=== PATIENT | male | born 1960 | race Caucasian/White ===

== ENCOUNTER 2023-07-20 02:26 | Day surgery (SDC) | payer OTHER, SELFPAY ==
[2023-07-08 14:53] VITALS: BMI 24.5
[2023-07-20 10:15] VITALS: BP 127/64; PULSE 93; RESP 18; TEMP 36.4; O2SAT 98; BMI 24.0
[2023-07-20] MEDS: LACTATED RINGERS 1,000 ML 150 ML IV CONT (10:37)
--- NOTE | 2023-07-20 10:55 | PM.HPGS ---
History of Present Illness History of Present Illness Consent: Risks, benefits, and alternatives have been discussed and questions answered. Patient agrees to proceed with procedure. Chief complaint: neoplasm screening Narrative: Omega Calabrese Sr. is a 62 year old male here for colon screening Review of Systems Constitutional: Constitutional: Denies headache(s) and Denies weakness Eyes: Eyes: Denies blurry vision ENT: Reports Normal hearing present, Denies headache(s) and Denies neck pain Cardiovascular: Cardiovascular: Denies chest pain and Denies dyspnea Respiratory: Respiratory: Denies dyspnea Gastrointestinal: Gastrointestinal: Reports no additional gastrointestinal complaints Genitourinary: Genitourinary: Denies dysuria Musculoskeletal: Musculoskeletal: Denies neck pain Integumentary/Breasts: Skin/Breast: Denies dry skin Neurologic: Reports Normal hearing present, Denies headache(s) and Denies weakness Psychiatric: Psychiatric: Denies anxiety Endocrine: Endocrine: Denies change in body appearance Hematologic/Lymphatic: Hematologic/Lymphatic: Denies easy bleeding Allergic/Immunologic: Allergic/Immunologic: Denies urticaria PMFSH Past Medical History Medical History (Updated 07/20/23 @ 10:56 by Augustine Whitney MD) Colon cancer screening Social History Social History Smoking packs per day: 2 Smoking cigarettes per day: 40.0 Years smoked: 50 Smoking pack-years: 100.00 Smoking status: Current every day smoker Tobacco type: cigarettes Additional smoking assessment comments: CUT BACK ON SMOKING MARCH 2023 Alcohol intake: current Substance use: current Substance use type: marijuana Other substance usage details: EVENING Living arrangements: with family Spiritual care concerns: No Meds Home Medications and Allergies Home Medications Medication Instructions Recorded Confirmed Type albuterol sulfate 90 mcg/actuation 2 puff inhalation Q4H PRN 07/08/23 07/20/23 History aerosol inhaler Shortness Of Breath amlodipine 5 mg tablet 5 mg PO DAILY 07/08/23 07/20/23 History atorvastatin 40 mg tablet 40 mg PO DAILY 07/08/23 07/20/23 History carvedilol 6.25 mg tablet 6.25 mg PO BID 07/08/23 07/20/23 History clopidogrel 75 mg tablet 75 mg PO DAILY 07/08/23 07/20/23 History cyanocobalamin (vitamin B-12) 1,000 mcg IM MONTHLY 07/08/23 07/20/23 History 1,000 mcg/mL injection solution famotidine 20 mg tablet 20 mg PO DAILY 07/08/23 07/20/23 History fluticasone propionate 50 2 spray intranasal BID PRN 07/08/23 07/20/23 History mcg/actuation nasal Congestion spray,suspension lisinopril 5 mg tablet 5 mg PO DAILY 07/08/23 07/20/23 History nitroglycerin 0.4 mg sublingual 0.4 mg sublingual PRN PRN Chest 07/08/23 07/20/23 History tablet Pain Allergies Allergy/AdvReac Type Severity Reaction Status Date / Time No Known Allergies Allergy Unknown Verified 07/20/23 10:21 Vital Signs Vital Signs - 24 hr 07/20/23 10:15 Temperature 97.6 F Pulse Rate 93 Respiratory Rate 18 Blood Pressure 127/64 Pulse Oximetry 98 Oxygen Delivery Room Air Exam Const: General: comfortable and no acute distress HENMT: Face/Nose/Sinus: Normal nares present Eyes: General: appearance normal, both eyes and all related structures Neck: Neck: no JVD Resp: Auscultation: clear to auscultation bilaterally Cardio: Rate: regular rate Rhythm: regular rhythm GI: Inspection: non-distended GI Palp: Yes Soft to palpation Skin: General skin exam: normal color Neuro: General: gait normal Speech: normal speech Extrem: General: normal to inspection Psych: Mental Status: mental status grossly normal Assessment and Plan Assessment and plan (1) Colon cancer screening: Code(s): Z12.11 - Encounter for screening for malignant neoplasm of colon Status: Acute Assessment and Plan: colonoscopy
--- NOTE | 2023-07-20 10:58 | P.PNAN_ITS ---
Anes - Initial Pre Proc Eval Procedure: Operation Date: 07/20/23 11:30 Proposed Procedures p Screening Colonoscopy - Augustine Whitney MD Date/Time: 07/20/23 10:58 Surgeon: Augustine Whitney MD Pre Op Diagnosis: neoplasm screening Patient Data Age: 62 Gender: M Height: 1.83 m Weight: 80.2 kg Last Vital Signs Temp 97.6 F 07/20/23 10:15 Pulse 93 07/20/23 10:15 Resp 18 07/20/23 10:15 BP 127/64 07/20/23 10:15 Pulse Ox 98 07/20/23 10:15 O2 Del Method Room Air 07/20/23 10:15 Allergies Allergy/AdvReac Type Severity Reaction Status Date / Time No Known Allergies Allergy Unknown Verified 07/20/23 10:21 Home Medications Medication Instructions Recorded Confirmed Type albuterol sulfate 90 mcg/actuation 2 puff inhalation Q4H PRN 07/08/23 07/20/23 History aerosol inhaler Shortness Of Breath amlodipine 5 mg tablet 5 mg PO DAILY 07/08/23 07/20/23 History atorvastatin 40 mg tablet 40 mg PO DAILY 07/08/23 07/20/23 History carvedilol 6.25 mg tablet 6.25 mg PO BID 07/08/23 07/20/23 History clopidogrel 75 mg tablet 75 mg PO DAILY 07/08/23 07/20/23 History cyanocobalamin (vitamin B-12) 1,000 mcg IM MONTHLY 07/08/23 07/20/23 History 1,000 mcg/mL injection solution famotidine 20 mg tablet 20 mg PO DAILY 07/08/23 07/20/23 History fluticasone propionate 50 2 spray intranasal BID PRN 07/08/23 07/20/23 History mcg/actuation nasal Congestion spray,suspension lisinopril 5 mg tablet 5 mg PO DAILY 07/08/23 07/20/23 History nitroglycerin 0.4 mg sublingual 0.4 mg sublingual PRN PRN Chest 07/08/23 07/20/23 History tablet Pain Patient hx anesthesia problems: none Family hx anesthesia problems: none Results Review: All pre-operative results and documents have been reviewed as part of the pre- operative evaluation. [facility] Past Medical History Medical History (Updated 07/20/23 @ 10:56 by Aguustine Whitney MD) Colon cancer screening Social History Social History Smoking packs per day: 2 Smoking cigarettes per day: 40.0 Years smoked: 50 Smoking pack-years: 100.00 Smoking status: Current every day smoker Tobacco type: cigarettes Additional smoking assessment comments: CUT BACK ON SMOKING MARCH 2023 Alcohol intake: current Substance use: current Substance use type: marijuana Other substance usage details: EVENING Living arrangements: with family Spiritual care concerns: No Anes - Eval Final PreProcedure Day of Procedure 07/20/23 10:58 Patient weight: normal Heart: regular rate and rhythm Lungs: clear to auscultation Airway: Mallampati scale class II Neurological: alert and oriented Last oral intake: >/= 8 hours ASA classification: III Emergent: no Anesthetic plan: proceed Anesthesia type and monitoring: general GIVS and standard monitoring Results Review: All pre-operative results and documents have been reviewed as part of the pre- operative evaluation. Informed Consent: The patient's anesthetic plan and its attendant risks and benefits were discussed with the patient/family/POA. Questions were solicited and answers provided to the satisfaction of the patient/family/POA.
[2023-07-20 11:26] VITALS: BP 98/65; PULSE 61; RESP 20; O2SAT 100
[2023-07-20 11:36] VITALS: BP 103/63; PULSE 53; RESP 17; O2SAT 100
[2023-07-20 11:46] VITALS: BP 113/74; PULSE 54; RESP 19; O2SAT 100
== END 2023-07-20 12:00 | disposition home or self-care (01) ==
PROVIDERS: PCP Physician Assistant; Visit Provider Internal Medicine Gastroenterology
PROC: 0DJD8ZZ Inspection of Lower Intestinal Tract, Via Natural or Artificial Opening Endoscopic (ICD-10-PCS; CPT 45378; principal; 2023-07-20 11:30)
DX: Z12.11 Encounter for screening for malignant neoplasm of colon (principal); D12.2 Benign neoplasm of ascending colon; D12.4 Benign neoplasm of descending colon; D12.5 Benign neoplasm of sigmoid colon; K63.5 Polyp of colon; K57.30 Diverticulosis of large intestine without perforation or abscess without bleeding; K64.8 Other hemorrhoids; Z79.02 Long term (current) use of antithrombotics/antiplatelets; Z79.51 Long term (current) use of inhaled steroids; F17.210 Nicotine dependence, cigarettes, uncomplicated; F12.90 Cannabis use, unspecified, uncomplicated
CPT/HCPCS: 45385; 88305; J2704; J7120

== ENCOUNTER 2025-10-29 01:21 | Day surgery (SDC) | payer MEDICARE, MEDICAID, SELFPAY ==
--- NOTE | 2025-08-30 11:13 | PC.NURSE ---
Addendum entered by Fariha Antony RN 08/30/25 11:33: Pt has 13 heart stents. Original Note: Pt called and had ran out of his medications so has not been taking them for 2-3 months. Has a new PCP who has reordered all him meds and he is now getting back on his meds and working on a cardiology appt for clearance. Rescheduled to 10/29/25, he will call me with rn training and appt. date.
[2025-10-23 15:48] VITALS: BMI 24.3
--- NOTE | 2025-10-23 16:10 | PC.NURSE ---
Spoke with patient regarding medication plavix. Patient verbalizes understanding that the last dose is to be taken on 10/24/2025 and the Endoscopist will instruct them when to restart after the procedure.
--- OUTSIDE RECORDS SUMMARY | 2025-10-29 01:25 | XMS_ITS | Data Portability ---
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 01/12/2023 23:10:47 Social History Question Answer Notes LastModified by Organizat ion Details LastModified Time Tobacco Smoking Status Current Every Day Smoker Not Available [facility] 01/12/2023 23:10:03 Do You Have An Advance Directive? No Information not available 07/30/2025 Do You Wear A Helmet When Biking? Yes [id number] Information not available 01/12/2023 What Is Your Level Of Caffeine Consumption? Heavy Information not available 07/30/2025 In The 14 Days Before Symptom Onset, Have You Had Close Contact With A Laboratory-korini ed COVID-19 While That Case Was Ill? No Information not available 07/30/2025 In The 14 Days Before Symptom Onset, Have You Had Close Contact With A Person Who Is Under Investigation For COVID-19 While That Person Was Ill? No Information not available 07/30/2025 What Type Of Diet Are You Following? REGULAR [id number] Information not available 01/12/2023 Which Illicit Or Recreational Drugs Have You Used? Marijuana Information not available 07/30/2025 What Is The Highest Grade Or Level Of School You Have Completed Or The Highest Degree You Have Received? [id number] Information not available 01/12/2023 Do You Use Insect Repellent Routinely? No Information not available 07/30/2025 Where Do You Live? SingleLevelHouse Information not available 07/30/2025 Do You Have A Medical Power Of Ground School Instructor? No Information not available 07/30/2025 What Was The Date Of Your Most Recent Tobacco Screening? 07/30/2025 Information not available 07/30/2025 How Many Children Do You Have? 3 Information not available 07/30/2025 What Is Your Current Pack Years? 30ormorepackyears MIGRATION.52730 [id number] Information not available 01/12/2023 Do You Have Any Pets? No Information not available 07/30/2025 What Is Your Relationship Status? Information not available 07/30/2025 Do You Use Your Seat Belt Or Car Seat Routinely? Yes [id number] Information not available 01/12/2023 Do You Have Smoke And Carbon Monoxide Detectors In Your Home? Yes Information not available 07/30/2025 At What Age Did You Start Smoking Tobacco? 15 [id number] Information not available 01/12/2023 Are There Any Smokers In Your House? No Information not available 07/30/2025 How Much Tobacco Do You Smoke? 2 PPW Information not available 07/30/2025 Do You Participate In Social Media? No Information not available 07/30/2025 Do You Use Sunscreen Routinely? No Information not available 07/30/2025 Have You Recently Traveled Abroad? No Information not available 07/30/2025 Have You Used IV Drugs? No Information not available 07/30/2025 Are You Currently In School? No MIGRATION.[id number] Information not available 01/12/2023 Do You Have Any Dietary Restrictions? No MIGRATION.81647 32389 Information not available 01/12/2023 Sex: Unknown Functional Status Question Answer Note LastModified by [employer] Details LastModified Time Do you use any illicit or recreational drugs? Yes Information not available 07/30/2025 Do you or have you ever used any other forms of tobacco or nicotine? No Information not available 07/30/2025 What is your level of alcohol consumption? Occasional [id number] Information not available 01/12/2023 Are you currently employed? No retired Information not available 07/30/2025 What is your exercise level? None [id number] 026 Information not available 01/12/2023 Mental Status Question Answer Note LastModified by [employer] Details LastModified Time Do you feel stressed (tense, restless, nervous, or anxious, or unable to sleep at night)? UE6789-5 [id number] Information not available 01/12/2023 Family History Relationship Description Onset Age of this Age Resolved Age Notes LastModified by Organization Details LastModified Time Mother Hypertensive disorder [id number] Not available 01/12/2023 23:10:23 Mother Severe chronic obstructive pulmonary disease [id number].986 [id number] Not available 01/12/2023 23:10:23 Mother Myocardial infarction [id number].440 [id number] Not available 01/12/2023 23:10:23 Father Malignant neoplasm of bone MIGRATION.820 [id number] Not available 01/12/2023 23:10:23 Father Malignant neoplasm of lung MIGRATION.193 [id number] Not available 01/12/2023 23:10:23 Father Severe chronic obstructive pulmonary disease [id number].613 [id number] Not available 01/12/2023 23:10:23 Father Myocardial infarction [id number].070 [id number] Not available 01/12/2023 23:10:23 Sister Severe chronic obstructive pulmonary disease [id number].476 [id number] Not available 01/12/2023 23:10:23 Brother Myocardial infarction MIGRATION.947 [id number] Not available 01/12/2023 23:10:23 Medical History Condition Response BLINDNESS N RHEUMATIC FEVER N KIDNEY STONES N BLADDER PROBLEMS N MRSA N OTHER # 1 N POLIO N LUNG DISEASE/DISORDER N HISTORY OF DRUG ABUSE N COPD N RADIATION / CHEMOTHERAPY N Other # 2 N BLOOD DISEASES N SURGERY N EAR OR HEARING PROBLEMS N MUMPS N SHINGLES N FEMALE PROBLEMS / INFECTIONS N DEPRESSION (INCLUDING POST ) N BOWEL PROBLEMS N STROKE/TIA N THYROID DISEASE N ULCERS N BENIGN PROSTATIC HYPERPLASIA N MEASLES N CERVICALGIA N HYPOTENSION N TB SKIN TEST N MYOCARDIAL INFARCTION N OBESITY N PARAPELGIA N GERD/NAUSEA N ANEURYSM N URINARY/BLADDER/KIDNEY PROBLEMS N CORONARY ARTERY DISEASE (CAD) N MENIERE'S DISEASE N ADDICTION CONCERNS N ENDOMETRIOSIS N USE OF BLOOD THINNERS N SKIN PROBLEMS N EMPHYSEMA N GASTROINTESTINAL DISORDER N MUSCLE,JOINT OR BONE PROBLEMS N GASTROINTESTINAL BLEEDING N BLOOD CLOTS N ASTHMA N CATARACTS N ERECTILE DYSFUNCTION N GI PROBLEMS N CHF N Low Testosterone N NEUROPATHY N INFERTILITY N AIDS/HIV N FRACTURES N CHEMOTHERAPY / RADIATION N VISION/EYE PROBLEMS N LIVER DISEASE N MALE HYPOGONADISM N HYPERTENSION N TOURETTE'S N ANXIETY DISORDER N BLOOD TRANSFUSION N ANEMIA/BLOOD DISORDER N CHRONIC EAR INFECTIONS N BRONCHITIS N TUBERCULOSIS N GLAUCOMA N FOOT PROBLEM N DIVERTICULITIS N SLEEP APNEA N CHICKENPOX N ALLERGIES/HAYFEVER N INFECTIOUS DISEASE N PROSTATE N HEART ARRHYTHMIA N INSOMNIA N HIGH CHOLESTEROL / HYPERLIPIDEMIA N EYE PROBLEMS N HYPERTHYROIDISM N EATING DISORDER N EDEMA N CHRONIC PAIN SYNDROME N CAROTID BLOCKAGE N CONSTIPATION N BACK / NECK PROBLEMS N HAVE YOU BEEN HOSPITALIZED OR SEEN IN [facility] IN THE PAST YEAR ? N ATHEROSCLEROSIS N BREAST PROBLEMS N DIALYSIS N ECZEMA N FIBROMYALGIA N OSTEOPOROSIS N ARTHRITIS N NO SIGNIFICANT PAST MEDICAL HISTORY N APPENDICITIS N DIABETES, TYPE N BAD TEETH N HEARTBURN / REFLUX N ADD/ADHD N AUTISM SPECTRUM DISORDER (ASD) N HEPATITIS / LIVER DISEASE N PULMONARY DISEASE N GOUT N SLEEP DISORDER N ALZHEIMER'S DISEASE N PAIN N DEMENTIA N HERPES N SEIZURES/EPILEPSY N HEADACHES/MIGRAINES N VASCULAR DISEASE N PACEMAKER N DIZZINESS N HEART DISEASE/HEART PROBLEMS N KIDNEY DISEASE N SCARLET FEVER N MULTIPLE SCLEROSIS N DEVELOPMENTAL OR BEHAVIORAL DISORDERS N MENTAL DISORDER/ILLNESS N CANCER: SPECIFY N CARDIAC ARRHYTHMIA N PNEUMONIA N ATRIAL FIBRILLATION N Gall Stones N PULMONARY EMBOLISM N AUTOIMMUNE DISEASE N Immunizations Vaccine Type Date Status Note Provider Nam e and Address Organization Details Recorded Time pneumococcal polysaccharide PPV23 6 completed Not Available [facility] 09/09/2025 11:40:07 COVID-19, mRNA, LNP-S, PF, 30 mcg/0.3 mL dose 1 completed Not Available [facility] 09/09/2025 11:40:07 COVID-19, mRNA, LNP-S, PF, 30 mcg/0.3 mL dose 1 completed Not Available [facility] 09/09/2025 11:40:07 Past Encounters Encounter ID Performer Location Encounter Start Date Encounter Closed Date Diagnosis/Indication Diagnosis SNOMED-CT Code Diagnosis ICD10 Code Diagnosis IMO Codes Diagnosis Note [id number] Kavitha Alberts MD [facility] Primary Care [facility] [address] [facility] [address] [place] [address] 06/24/2021 00:00:00 07/13/2021 19:57:49 [id number] Kavitha Alberts MD [facility] Primary Care [facility] [address] [facility] [address] [address] [place] [address] 08/04/2021 00:00:00 08/04/2021 11:47:58 [id number] Kavitha Alberts MD [facility] Primary Care [facility] [address] [facility] [address] [address] [place] [address] 04/18/2023 13:58:26 04/18/2023 14:43:26 Adult health examination 369612591 Z00.00 Will get routine labs today. Covid vaccines- recommende d boosterFlu vaccine- recommende d, declinesTe tanus vaccine- recommende d; declines Colonoscop y- will order cologuard today; not completed previously when ordered Recommende d routine eye exams and dental cleanings. Screening for malignant neoplasm of prostate 754662929 Z12.5 Diabetes m ellitus screening 977539934 Z13.1 Hyperlipid emia screening 237377532 Z13.220 Cobalamin deficiency 190 205121 E53.8 Has not been on supplement for the last year. He is comfortabl e giving himself the injections . Left inguinal hernia 236 982468 K40.90 Has been present for last 6 months, reducible. Will send to general surgery to discuss repair. Heart disease 22255637 I 51.9 Establishe d with cardiology (Dr. Farzana López). Screening for malignant neoplasm of colon 757706187 Z12.11 Low back strain 28035828 1 S39.012A Most likely mechanical back pain, hx of DDD.Plan to do course of steroids and muscle relaxers. Work on home stretching . Anxiety disorder 4579122 06 F41.9 Increasing .Previousl y on alprazolam but has not been on it recently. Thinks anxiety is coming from pain with his hernia and worried about surgery and taking care of his daughter.W ill plan to do temporary low dose of alprazolam . [id number] TERESITA Hanson [facility] Primary Care [address] [place] [address] 07/30/2025 15:59:09 07/30/2025 16:49:05 Adult health examination 832791999 Z00.00 [id number] Discussed medication compliance and routine follow up.Discuss ed healthy diet and routine exercise.Nancy taborwed vaccine records and made recommenda tions as needed.Enc ouraged annual eye and dental exams, as well as twice yearly dental cleanings. Will check screening labs as listed below. Screening for malignant neoplasm of prostate 942566720 Z12.5 602574 Heart disease 84198378 I 51.9 Patient has been out of medication s for a few months. Will refill meds as listed below. Hyperlipidemia 17105324 E78.5 Will refill meds and check labs as listed below. Essential hypertension 19702837 I10 132/74Doin g well on current medication s, will refill as listed below. Heartburn 90847563 R12 Doing well on current medication s, will refill as listed below. Chronic ob structive pulmonary disease 22630829 J44.9 Chest pain 97970659 R07. 9 Seasonal allergy 0897618 04 J30.2 48043 [id number] TERESITA Hanson [facility] Primary Care [address] [place] [address] 09/09/2025 11:38:02 09/09/2025 11:50:20 Health Concerns Section Related Observation LastModified by Organization Marii garrido LastModified Time None Recorded Concern Status LastModified by Organization Details LastModified Time None Recorded Advance Directives Directive N: Payers Insurance Date Sequence Insurance Name Policy Number Policy Escobar Covered Member ID Escobar Member ID Guarantor Name 09/09/2025 1 [facility] - DOS ON OR AFTER 21 (MEDICAID REPLACEMENT - HMO) Omega [employer]rese [id number] [employer] Notes Date Note Type Note Provider Name and Address Organization Details Recorded Time 04/18/2023 text/html Pt. here for annual physical/medicatio n refills. Followed by cardiology (Dr. Farzana López).He is also concerned about a hernia in the left groin. 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 He states it is getting bigger, he can push it back in when it starts to bulge out more.He has also noticed pain in the right lower back. Started 3 days ago. He does not remember any specific injury. He has not taken any medication, states ibuprofen makes his stomach hurt. Has tried ice/heat. He does have hx of degenerative disc disease.He is working on quitting cigarettes, states he has only had 8-10 cigarettes for the last week. MERYL Sandoval [address], [place], [address], [place] 04/18/2023 15:05:12 07/30/2025 text/html Patient is a 64 year old male that presents to the office for annual wellness. Patient reports he is doing well and has no concerns at this time. labs- orderedPSA- orderedColonoscopy - UTD (2022)Ibl-Daezr-Rr nt-Sgkmjnmf-Novezu - UTD TERESITA Hanson [address], [place], [address], [employer] 07/31/2025 09:04:35
--- OUTSIDE RECORDS SUMMARY | 2025-10-29 01:26 | XMS_ITS | Clinical Summary ---
Author Organization [facility] [address] Address [address] [place] [address] Care Team Providers Care Vibration Technician Name Role Phone Gisel Lucero NP Primary Care Provider + [phone] Allergies No known active allergies Medications lisinopriL (PRINIVIL,ZESTRIL) 5 mg tablet Take 5 mg by mouth daily Active carvediloL (COREG) 6.25 mg tablet Take 6.25 mg by mouth 2 (two) times a day with meals Active clopidogreL (PLAVIX) 75 mg tablet Take 75 mg by mouth daily Active famotidine (PEPCID) 20 mg tablet Take 20 mg by mouth nightly as needed for heartburn Active amLODIPine (NORVASC) 5 mg tablet Take 5 mg by mouth daily Active budesonide-formote roL (SYMBICORT) 80-4.5 mcg/actuation inhalerIndications :Chronic obstructive pulmonary disease, unspecified COPD type (HCC) Inhale 2 puffs 2 (two) times a day Rinse mouth with water after use. Do not swallow. 1 g 07/13/20 21 Active Additional Information Patient not taking.Reported on 10/21/2025 albuterol HFA (PROVENTIL HFA,VENTOLIN HFA,PROAIR HFA) 90 mcg/actuation inhalerIndications :Chronic obstructive pulmonary disease, unspecified COPD type (HCC) Inhale 2 puffs every 6 (six) hours as needed for wheezing 1 g 07/13/20 21 Active fluticasone propion-salmeteroL (ADVAIR DISKUS) 100-50 mcg/dose diskus inhalerIndications :Chronic obstructive pulmonary disease, unspecified COPD type (HCC) Inhale 1 puff 2 (two) times a day Rinse mouth with water after use. Do not swallow. 60 each 07/13/20 21 Active atorvastatin (LIPITOR) 40 mg tabletIndications: Coronary artery disease involving [place] coronary artery of [place] heart without angina pectoris,Multiple- type hyperlipidemia Take 1 tablet by mouth once daily 90 tablet 09/19/20 23 Active fluticasone propionate (FLONASE) 50 mcg/actuation nasal spray Administer 1 spray into each nostril daily Active nitroglycerin (NITROSTAT) 0.[address] 1 tablet (0.4 mg total) under the tongue every 5 (five) minutes as needed Active Active Problems Problem Noted Date Diagnosed Date Coronary artery disease invo lving [place] coronary artery of [place] heart without angina pectoris 07/13/2021 S/P drug eluting coronary stent placement 2020 COPD (chronic obstructive pulmonary disease) Anxiety 07/13/2021 Essential hypertension 07/13/2021 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 Overview (02/18/2017): MIXED HYPERLIPIDEMIA Tobacco dependence syndrome 03/30/2014 Overview (02/18/2017): TOBACCO USE DISORDER Resolved Problems Problem Noted Date Diagnosed Date Resolved Date Acute myocardial infarction 05/28/2014 07/13/2021 Overview (02/17/2017): AMI NOS, SUBSEQUENT Encounters Date Type Department Care Team Description 10/23/2025 Telephone [facility] Cardiology [address] [place] [phone] Vijay Montes MD Pre-Op 10/21/2025 11:30 AM CASH PROCESSOR Office Visit [facility] Cardiology [address] [place] [phone] Vijay Montes MD Coronary artery disease involving [place] coronary artery of [place] heart without angina pectoris (Primary Dx); S/P drug eluting coronary stent placement from Last 3 Months Surgical History Surgery Date Site/Laterality Comments CORONARY ANGIOPLASTY Medical History Medical History Date Comments Hx Other Medical Back Pain Hx Other Medical Anxiety disorde r Hyperlipidemia Heart attack (HCC) Acid indigestion Anxiety Depression COPD (chronic obstructive pulmonary disease) Arthritis Family History Medical History Relation Name Comments Lung cancer Father COPD Mother Dementia Mother Relation Name Status Comments Father Mother Social History Tobacco Use Types Packs/Day Years Used Date Smoking Tobacco: Every Day Cigarettes Smokeless Tobacco: Never Sex and Gender Information Value Date Recorded Sex Assigned at Not on file Legal Sex Male 12:39 PM CASH PROCESSOR Gender Identity Not on file Sexual Orientation Not on file Last Filed Vital Signs Vital Sign Reading Time Taken Comments Blood Pressure 128/72 10/21/2025 10:36 AM CASH PROCESSOR Pulse 72 10/21/2025 10:36 AM CASH PROCESSOR Temperature - - Respiratory Rate 20 10/21/2025 10:36 AM CASH PROCESSOR Oxygen Saturation 97% 10/21/2025 10:36 AM CASH PROCESSOR Inhaled Oxygen Concentration - - Weight 80.3 kg (177 lb) 10/21/2025 10:36 AM CASH PROCESSOR Height 182.9 cm (6') 10/21/2025 10:36 AM CASH PROCESSOR Body Mass Index 24.01 10/21/2025 10:36 AM CASH PROCESSOR Plan of Treatment Health Maintenance Due Date Last Done Comments Colon Cancer Screening-Colonoscopy 1960 Depression Screening 1960 Fall Risk Assessment 1960 Hepatitis C Screening 1960 Prostate Cancer Screening-PSA 1960 DTaP/Tdap/Td Vaccine (1 - Tdap) 1971 Hepatitis B Screening 1978 Zoster Vaccine (1 of 2) 2010 Pneumococcal vaccine 65+ (2 of 2 - PCV) 09/13/2017 1 Covid-19 Vaccine ( season) 2025, 06/02/2021 Influenza Vaccine (#1) 2025 Abdominal Aortic Aneurysm (AAA) Screen 2025 Well Visit 65+ 2025 Procedures Procedure Name Priority Date/Time Associated Diagnosis Comments POCT LIPID PANEL Routine 10/21/2025 10:3 9 AM CASH PROCESSOR Coronary artery disease involving [place] coronary artery of [place] heart without angina pectoris ELECTROCARDIOGRAM REPORT Routine 10/21/2025 Coronary artery disease involving [place] coronary artery of [place] heart without angina pectoris from Last 3 Months Results * POCT lipid panel (10/21/2025 10:39 AM CASH PROCESSOR) Cholesterol, POC 129 <200 MG/DL HDL, POC 52 >=40 mg/dL Triglycerides, POC 86 <=149 mg/dL LDL Cholesterol POC 60 <=129 mg/dL Chol/HDL Ratio, POC 2.5 NONE Non-HDL Cholesterol, POC 77 NONE mg/dL Cholesterol Total, POC 129 30 - 199 mg/dL Capillary blood 10/21/2025 1 0:39 AM CASH PROCESSOR Vijay Montes MD POINT OF CARE TEST ORDER DANYELL Final Result * Electrocardiogram Report (10/21/2025) 10/21/2025 Vijay Montes MD ECG ORDERABLES Edited R esult - Final from Last 3 Months Insurance [id number] [place] [address] [facility] IDPR MEDICARE Care Teams Vibration Technician Relationship Specialty Start Date End Date Gisel Lucero NP [address] [place] [address] PCP - General Family Medicine 10/21/25
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
[2025-10-29 11:06] VITALS: BP 121/62; PULSE 62; RESP 20; TEMP 36.6; O2SAT 95; BMI 23.6
[2025-10-29] MEDS: LACTATED RINGERS 1,000 ML 150 ML IV CONT (11:17)
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
--- NOTE | 2025-10-29 12:54 | S_PTH ---
PATIENT: Omega Calabrese LOC: [facility] Yap#:[id number] AGE/SX: 65/M ROOM: RE10/29/[address]: Augustine Whitney MD : 1960 BED: DIS: 10/29/2025 SPEC #: [id number] RECD: 10/29/25 13:17 STATUS: SHAHRAM REDaphnie #: [id number] LISA: 10/29/25 12:[address]: Augustine Whitney DEPT: [facility] [place] Surgical RECD BY: Leela Strickland ENTERED: 10/29/25 13:18 SP TYPE: Surgical OTHR DR: Gisel Lucero, PULMONARY FUNCTION TECHNICIAN Tissues: A - Colon Polypectomy Procedures: Hematoxylin and Eosin Stain Gross and Microscopic Level 4
[2025-10-29 13:03] VITALS: BP 107/54; PULSE 56; RESP 16; O2SAT 99
[2025-10-29 13:13] VITALS: BP 119/62; PULSE 55; RESP 16; O2SAT 99
[2025-10-29 13:23] VITALS: BP 136/64; PULSE 58; RESP 18; O2SAT 96
== END 2025-10-29 13:37 | disposition home or self-care (01) ==
PROVIDERS: PCP Nurse Practitioner Family; Referring Provider Internal Medicine Gastroenterology; Visit Provider Internal Medicine Gastroenterology
PROC: 0DJD8ZZ Inspection of Lower Intestinal Tract, Via Natural or Artificial Opening Endoscopic (ICD-10-PCS; CPT 45378; principal; 2025-10-29 12:30)
DX: Z12.11 Encounter for screening for malignant neoplasm of colon (principal); K63.5 Polyp of colon; K64.8 Other hemorrhoids; F17.210 Nicotine dependence, cigarettes, uncomplicated; F12.90 Cannabis use, unspecified, uncomplicated
CPT/HCPCS: 45385; 88305; J2003; J2704; J7120